=== PATIENT | male | born 1985 | race Hispanic/Latino ===

== ENCOUNTER 2019-01-17 15:00 | Outpatient (CLI) | payer OTHER | END 2019-01-17 15:01 | disposition home or self-care (01) | LOC: MADEKG 15:00 | PROVIDERS: ATTEND Family Medicine | DX: R00.2 Palpitations (principal) | CPT/HCPCS: 93005; 93010 ==

== ENCOUNTER 2020-11-20 09:38 | Outpatient (CLI) | payer OTHER | END 2020-11-20 09:39 | disposition home or self-care (01) | LOC: MADRAD 09:38 | PROVIDERS: ATTEND Family Medicine | DX: R06.02 Shortness of breath (principal) | CPT/HCPCS: 71046 ==